=== PATIENT | female | born 1935 | race Hispanic/Latino ===

== ENCOUNTER 2023-05-20 19:48 | Emergency (ER) | payer OTHER, MEDICARE ==
[~2023-05-20] VITALS: Ht 147.3 cm; Wt 67.1 kg
[~2023-05-20 19:48] MED LIST: APIX5TAB PO; LISI1TAB51 PO; PANT40TA54 PO; PANT40TA55 PO; SOTA80TA PO
[2023-05-20] MEDS ORDERED: FAMOTIDINE 20MG VIAL IV ONE (21:30)
[2023-05-20] MEDS ORDERED: KETOROLAC 15MG/ML VIAL (15MG/ML) IV ONE (21:30)
[2023-05-20] MEDS ORDERED: ONDANSETRON 4MG INJ IVP ONE (21:30)
[2023-05-20 22:04] LABS: APPEARANCE,URINE CLEAR (CLEAR); BILIRUBIN,URINE 1 mg/dL (NEGATIVE); COLOR,URINE DARK-BROWN (YELLOW); GLUCOSE, URINE (UA) NEGATIVE (NEGATIVE); KETONES,URINE NEGATIVE (NEGATIVE); LEUKOCYTE ESTERASE ,URINE NEGATIVE Leu/uL (NEGATIVE); NITRATE,URINE 1+ (NEGATIVE); OCCULT BLOOD,URINE NEGATIVE (NEGATIVE); PH,URINE 5.5 (5.0-8.0); PROTEIN,URINE 10 mg/dL (NEGATIVE); UROBILINOGEN,URINE 3 mg/dL (0.2-1.0)
[2023-05-20 22:05] LABS: ADD UA MICROSCOPIC YES
[2023-05-20 22:10] LABS: MUCUS,URINE RARE LPF (None Seen); OTHER CASTS, URINE 3 /LPF (None Seen); SQUAMOUS EPITHELIAL CELL,UR RARE /HPF (0-2)
[2023-05-20 22:18] LABS: BASOPHILS # (AUTO) 0.04 K/uL (0.00-0.20); BASOPHILS % (AUTO) 0.6 % (0.0-5.0); EOSINOPHILS # (AUTO) 0.17 K/uL (0.00-0.70); EOSINOPHILS % (AUTO) 2.4 % (0.0-8.0); HEMATOCRIT 34.8 % (36-48); IMMATURE GRANULOCYTE ABSOLUTE 0.02 K/uL (0-1); LYMPHOCYTES # (AUTO) 1.8 K/uL (1.0-4.8); MEAN CORPUSCULAR HEMOGLOBIN 29.9 pg (27.0-33.0); MEAN CORPUSCULAR HGB CONC 33.3 g/dL (32.0-36.0); MEAN CORPUSCULAR VOLUME 89.7 fL (79-99); MONOCYTES # (AUTO) 1.1 K/uL (0.1-1.0); MONOCYTES % (AUTO) 15.6 % (3.0-13.0); NEUTROPHILS % (AUTO) 56.1 % (40.0-77.0); PLATELET COUNT (AUTO) 335 K/uL (130-400); RED BLOOD CELL COUNT(AUTO) 3.88 MIL/uL (4.00-5.50); RED CELL DISTRIBUTION WIDTH 14.5 % (11.0-15.5); WHITE BLOOD COUNT (AUTO) 7.2 K/uL (4.8-10.8)
[2023-05-20 22:39] LABS: BILIRUBIN,TOTAL 0.4 mg/dL (0.2-1.0); POTASSIUM 4.2 mmol/L (3.5-5.1); TOTAL PROTEIN, SERUM 6.8 g/dL (6.0-8.3)
[2023-05-20 22:53] LABS: ALBUMIN 3.6 g/dL (3.5-5.0); CREATININE 1.8 mg/dL (0.5-1.5)
[2023-05-20] MEDS ORDERED: CEFTRIAXONE 2GM VIAL IVPB ONE (23:00)
[2023-05-20 23:06] LABS: WBC MORPHOLOGY CONSISTENT W/DIFF
[2023-05-20 23:31] LABS: SARS-CoV-2, RNA, NAAT NEGATIVE SARS CoV-2 (NEGATIVE)
[2023-05-20 23:35] LABS: INFLUENZA TYPE A Negative For Type A (NEGATIVE); INFLUENZA TYPE B Negative For Type B (NEGATIVE)
[2023-05-21] MEDS ORDERED: CEPH500C2 PO (00:46)
[2023-05-21] MEDS ORDERED: PHEN-847 PO (00:46)
[2023-05-21 01:43] VITALS: BP 152/74; PULSE 88; RESP 20; O2SAT 99
== END 2023-05-21 01:47 | disposition home or self-care (01) ==
LOC: EDH 19:48
DX: N39.0 Urinary tract infection, site not specified (principal); I10 Essential (primary) hypertension; I48.91 Unspecified atrial fibrillation; N85.2 Hypertrophy of uterus; Z20.822 Contact with and (suspected) exposure to COVID-19; Z79.899 Other long term (current) drug therapy; Z98.890 Other specified postprocedural states
CPT/HCPCS: 99285; 74176; 96365; 96375; 87635; 84484; 80053; 83690; 85025; 87040 ×2; 87088; 87804 ×2; 83605; 81001; 36415; C9803; J3490; J0696; J2405; J1885

== ENCOUNTER 2023-11-09 10:36 | Emergency (ER) | payer OTHER, MEDICARE ==
[~2023-11-09] VITALS: Ht 144.8 cm; Wt 62.1 kg
[~2023-11-09 10:36] MED LIST changes: +CEPH500C2 PO; +PHEN-847 PO
[2023-11-09 11:02] LABS: APPEARANCE,URINE CLEAR (CLEAR); BILIRUBIN,URINE NEGATIVE (NEGATIVE); COLOR,URINE YELLOW (YELLOW); GLUCOSE, URINE (UA) NEGATIVE (NEGATIVE); KETONES,URINE NEGATIVE (NEGATIVE); LEUKOCYTE ESTERASE ,URINE NEGATIVE Leu/uL (NEGATIVE); NITRATE,URINE NEGATIVE (NEGATIVE); OCCULT BLOOD,URINE SMALL (NEGATIVE); PROTEIN,URINE 30 mg/dL (NEGATIVE)
[2023-11-09 11:17] LABS: ADD UA MICROSCOPIC YES
[2023-11-09] MEDS: 0.9%NACL 1000ML 1,000 ML IV ONE (11:18)
[2023-11-09 11:32] LABS: BACTERIA,URINE RARE /HPF (None Seen); MUCUS,URINE RARE LPF (None Seen); SQUAMOUS EPITHELIAL CELL,UR RARE /HPF (0-2); WBC,URINE 0-1 /HPF (0-1)
[2023-11-09 11:42] LABS: BASOPHILS # (AUTO) 0.03 K/uL (0.00-0.20); BASOPHILS % (AUTO) 0.5 % (0.0-5.0); EOSINOPHILS # (AUTO) 0.09 K/uL (0.00-0.70); EOSINOPHILS % (AUTO) 1.4 % (0.0-8.0); HEMATOCRIT 34.9 % (36-48); IMMATURE GRANULOCYTE ABSOLUTE 0.03 K/uL (0-1); LYMPHOCYTES % (AUTO) 15.6 % (21.0-51.0); MEAN CORPUSCULAR HEMOGLOBIN 30.1 pg (27.0-33.0); MEAN CORPUSCULAR HGB CONC 32.7 g/dL (32.0-36.0); MEAN CORPUSCULAR VOLUME 92.1 fL (79-99); MONOCYTES # (AUTO) 0.6 K/uL (0.1-1.0); MONOCYTES % (AUTO) 9.6 % (3.0-13.0); NEUTROPHILS # (AUTO) 4.8 K/uL (1.8-7.7); NEUTROPHILS % (AUTO) 72.4 % (40.0-77.0); PLATELET COUNT (AUTO) 336 K/uL (130-400); RED BLOOD CELL COUNT(AUTO) 3.79 MIL/uL (4.00-5.50); RED CELL DISTRIBUTION WIDTH 15.1 % (11.0-15.5); WHITE BLOOD COUNT (AUTO) 6.7 K/uL (4.8-10.8)
[2023-11-09 11:58] LABS: ALBUMIN 3.1 g/dL (3.5-5.0); BILIRUBIN,TOTAL 0.4 mg/dL (0.2-1.0); TOTAL PROTEIN, SERUM 6.6 g/dL (6.0-8.3)
[2023-11-09] MEDS: LEVOFLOXACIN 500 MG TABLET PO SCH (13:06)
[2023-11-09] MEDS ORDERED: ALBUHFA IH (13:16)
[2023-11-09] MEDS ORDERED: LEVO-70 PO (13:16)
[2023-11-09 13:31] VITALS: BP 135/54; PULSE 80; RESP 18; O2SAT 99
== END 2023-11-09 13:58 | disposition home or self-care (01) ==
LOC: EDH 10:36
DX: J18.0 Bronchopneumonia, unspecified organism (principal); R73.9 Hyperglycemia, unspecified; I10 Essential (primary) hypertension; I48.91 Unspecified atrial fibrillation; Z79.899 Other long term (current) drug therapy; Z98.890 Other specified postprocedural states
CPT/HCPCS: 99285; 96360; 71045; 96361; 82550; 84484; 80053; 85025; 81001; 36415; 93005; J7030

== ENCOUNTER → 2024-02-27 | Outpatient (CLI) | payer OTHER, MEDICARE ==
[~2024-02-27] MED LIST changes: +ALBUHFA IH; -CEPH500C2 PO; +LEVO-70 PO; -PHEN-847 PO
[2024-02-27 16:28] LABS: BASOPHILS # (AUTO) 0.02 K/uL (0.00-0.20); BASOPHILS % (AUTO) 0.3 % (0.0-5.0); EOSINOPHILS % (AUTO) 1.6 % (0.0-8.0); IMMATURE GRANULOCYTE ABSOLUTE 0.02 K/uL (0-1); LYMPHOCYTES # (AUTO) 1.8 K/uL (1.0-4.8); LYMPHOCYTES % (AUTO) 28.7 % (21.0-51.0); MEAN CORPUSCULAR HEMOGLOBIN 30.3 pg (27.0-33.0); MEAN CORPUSCULAR HGB CONC 33.9 g/dL (32.0-36.0); MEAN CORPUSCULAR VOLUME 89.3 fL (79-99); MONOCYTES # (AUTO) 0.6 K/uL (0.1-1.0); MONOCYTES % (AUTO) 9.9 % (3.0-13.0); NEUTROPHILS # (AUTO) 3.7 K/uL (1.8-7.7); NEUTROPHILS % (AUTO) 59.2 % (40.0-77.0); PLATELET COUNT (AUTO) 332 K/uL (130-400); RED BLOOD CELL COUNT(AUTO) 4.03 MIL/uL (4.00-5.50); RED CELL DISTRIBUTION WIDTH 14.6 % (11.0-15.5); WHITE BLOOD COUNT (AUTO) 6.2 K/uL (4.8-10.8)
[2024-02-27 16:49] LABS: MAGNESIUM 2.1 mg/dL (1.80-2.40); POTASSIUM 4.7 mmol/L (3.5-5.1)
== END | disposition home or self-care (01) ==
LOC: LAB 14:00
PROVIDERS: ATTEND Internal Medicine Cardiovascular Disease
DX: I48.0 Paroxysmal atrial fibrillation (principal); I10 Essential (primary) hypertension; Z79.01 Long term (current) use of anticoagulants
CPT/HCPCS: 36415; 80048; 83735; 85025

== ENCOUNTER 2024-05-20 18:12 | Observation (INO) | payer OTHER, MEDICARE ==
[~2024-05-20] VITALS: Ht 152.4 cm; Wt 60.8 kg
[2024-05-20 18:38] LABS: BASOPHILS # (AUTO) 0.03 K/uL (0.00-0.20); BASOPHILS % (AUTO) 0.2 % (0.0-5.0); EOSINOPHILS # (AUTO) 0.08 K/uL (0.00-0.70); EOSINOPHILS % (AUTO) 0.4 % (0.0-8.0); HEMATOCRIT 33.8 % (36-48); IMMATURE GRANULOCYTE ABSOLUTE 0.08 K/uL (0-1); LYMPHOCYTES # (AUTO) 2.8 K/uL (1.0-4.8); LYMPHOCYTES % (AUTO) 15.6 % (21.0-51.0); MEAN CORPUSCULAR HEMOGLOBIN 29.7 pg (27.0-33.0); MEAN CORPUSCULAR HGB CONC 33.4 g/dL (32.0-36.0); MEAN CORPUSCULAR VOLUME 88.7 fL (79-99); MONOCYTES # (AUTO) 1.6 K/uL (0.1-1.0); MONOCYTES % (AUTO) 8.6 % (3.0-13.0); NEUTROPHILS # (AUTO) 13.6 K/uL (1.8-7.7); NEUTROPHILS % (AUTO) 74.8 % (40.0-77.0); PLATELET COUNT (AUTO) 353 K/uL (130-400); RED BLOOD CELL COUNT(AUTO) 3.81 MIL/uL (4.00-5.50); RED CELL DISTRIBUTION WIDTH 14.3 % (11.0-15.5); WHITE BLOOD COUNT (AUTO) 18.1 K/uL (4.8-10.8)
[2024-05-20 18:47] LABS: CREATININE 1.1 mg/dL (0.5-1.0); POTASSIUM 3.7 mmol/L (3.5-5.1)
[2024-05-20 18:58] LABS: INR 1.07 (0.85-1.15); PROTHROMBIN TIME 11.5 SEC (9.6-11.6)
[2024-05-20 19:00] LABS: PARTIAL THROMBOPLASTIN TIME 32.3 SEC (26.3-35.5)
[2024-05-20 19:23] LABS: BILIRUBIN,DIRECT 0.2 mg/dL (0.0-0.3); BILIRUBIN,TOTAL 0.7 mg/dL (0.2-1.0)
[2024-05-20] MEDS: cefTRIAXone 1G VIAL IVPB ONE (21:22)
[2024-05-20] MEDS: AZITHROMYCIN 500MG+NS 250ML 250 ML IV ONE (21:46)
[2024-05-20] MEDS: 0.9%NACL 1000ML 1,000 ML IV SCH (21:47)
[2024-05-20 22:28] LABS: COVID19 (SARS ANTIGEN RAPID) PRESUMPTIVE NEGATIVE (NEGATIVE)
[2024-05-20 22:29] LABS: INFLUENZA TYPE A Negative For Type A (NEGATIVE); INFLUENZA TYPE B Negative For Type B (NEGATIVE)
[2024-05-20 22:37] LABS: APPEARANCE,URINE CLEAR (CLEAR); BILIRUBIN,URINE NEGATIVE (NEGATIVE); COLOR,URINE YELLOW (YELLOW); GLUCOSE, URINE (UA) NEGATIVE (NEGATIVE); KETONES,URINE 5 mg/dL (NEGATIVE); LEUKOCYTE ESTERASE ,URINE NEGATIVE Leu/uL (NEGATIVE); NITRATE,URINE NEGATIVE (NEGATIVE); OCCULT BLOOD,URINE SMALL (NEGATIVE); PROTEIN,URINE 70 mg/dL (NEGATIVE); UROBILINOGEN,URINE 3 mg/dL (0.2-1.0)
[2024-05-20 22:38] LABS: ADD UA MICROSCOPIC YES
[2024-05-20 22:52] LABS: BACTERIA,URINE RARE /HPF (None Seen); MUCUS,URINE RARE LPF (None Seen); SQUAMOUS EPITHELIAL CELL,UR RARE /HPF (0-2)
[2024-05-20] MEDS ORDERED: ondanSETRON 4MG INJ IVP PRN (23:30)
[2024-05-20] MEDS ORDERED: TEMAZepam 15 MG CAPSULE PO PRN (23:30)
[2024-05-20] MEDS ORDERED: acetaMINOPHEN 650 MG SUPPOSITORY RC PRN (23:30)
[2024-05-20] MEDS ORDERED: hydrALAZine 20MG/ML VIAL IV PRN (23:30)
[2024-05-20] MEDS ORDERED: LACTULOSE 20 GM/30 ML UDCUP PO PRN (23:30)
[2024-05-20] MEDS ORDERED: doCUSate SODIUM 100 MG CAP PO PRN (23:30)
[2024-05-21] VITALS (9 sets, daily range): BP systolic 121; BP diastolic 53; PULSE 63–83; RESP 15–20; TEMP 98.9; O2SAT 95–100
[2024-05-21] MEDS: IpraTROPium 0.5 MG/2.5 ML INH IH SCH (01:13)
[2024-05-21] MEDS: BUDESONIDE 0.5 MG/2 ML INH IH SCH (01:13)
[2024-05-21] MEDS: furoSEMIDE 40MG VIAL IV SCH (01:34)
[2024-05-21] MEDS: acetaMINOPHEN 325 MG TAB PO PRN (02:50)
[2024-05-21] MEDS: INSULIN humuLIN R 100 UNIT/ML 3ML SQ SCH (07:30)
[2024-05-21 07:54] LABS: BASOPHILS # (AUTO) 0.03 K/uL (0.00-0.20); BASOPHILS % (AUTO) 0.2 % (0.0-5.0); EOSINOPHILS # (AUTO) 0.04 K/uL (0.00-0.70); EOSINOPHILS % (AUTO) 0.3 % (0.0-8.0); HEMATOCRIT 30.4 % (36-48); IMMATURE GRANULOCYTE ABSOLUTE 0.06 K/uL (0-1); LYMPHOCYTES # (AUTO) 2.6 K/uL (1.0-4.8); LYMPHOCYTES % (AUTO) 17.9 % (21.0-51.0); MEAN CORPUSCULAR HEMOGLOBIN 30.4 pg (27.0-33.0); MEAN CORPUSCULAR HGB CONC 33.9 g/dL (32.0-36.0); MEAN CORPUSCULAR VOLUME 89.7 fL (79-99); MONOCYTES # (AUTO) 1.3 K/uL (0.1-1.0); MONOCYTES % (AUTO) 9.3 % (3.0-13.0); NEUTROPHILS # (AUTO) 10.3 K/uL (1.8-7.7); NEUTROPHILS % (AUTO) 71.9 % (40.0-77.0); PLATELET COUNT (AUTO) 317 K/uL (130-400); RED BLOOD CELL COUNT(AUTO) 3.39 MIL/uL (4.00-5.50); RED CELL DISTRIBUTION WIDTH 14.2 % (11.0-15.5); WHITE BLOOD COUNT (AUTO) 14.3 K/uL (4.8-10.8)
[2024-05-21 08:10] LABS: MAGNESIUM 1.9 mg/dL (1.80-2.40); PHOSPHORUS 3.2 mg/dL (2.5-4.9); POTASSIUM 3.2 mmol/L (3.5-5.1); THYROID STIMULATING HORMONE 0.8 uIU/mL (0.36-3.74)
[2024-05-21] MEDS: DOXYCYCLINE 100MG+NS 250ML 250 ML IV SCH (08:57)
[2024-05-21] MEDS: cefTRIAXone 1G VIAL IVPB SCH (18:26)
[2024-05-21] MEDS ORDERED: NON-FORMULARY MEDICATION 1 EACH (Albuterol Sulfate (Ventolin Hfa/Proventil Hfa/Proair Hfa) IH SCH (20:00)
[2024-05-21] MEDS: PHARMACY COMMUNICATION MISC SCH (20:00)
[2024-05-21] MEDS: APIXaban 5 MG TABLET PO SCH (20:55)
[2024-05-21] MEDS: LISINOPRIL 20 MG TABLET PO SCH (20:55)
[2024-05-21] MEDS: hydroCHLOROthiazide 25 MG TABLET PO SCH (20:55)
[2024-05-21] MEDS ORDERED: NON-FORMULARY MEDICATION 1 EACH (Lisinopril/Hydrochlorothiazide (Lisinopril-Hctz 20-12.5 m PO SCH (21:00)
[2024-05-21] MEDS ORDERED: soTALol HCL 80 MG TABLET PO SCH ×2 (21:00)
[2024-05-22] VITALS (9 sets, daily range): BP systolic 107–135; BP diastolic 55–69; PULSE 68–78; RESP 16–18; TEMP 98.3–98.6; O2SAT 97–99
[2024-05-22] MEDS ORDERED: LOSA100T59 PO (02:48)
[2024-05-22] MEDS ORDERED: APIX2.5T PO (02:48)
[2024-05-22] MEDS ORDERED: AMLO-257 PO (02:48)
[2024-05-22] MEDS ORDERED: AMIO200T68 PO (02:48)
[2024-05-22 05:13] LABS: BASOPHILS # (AUTO) 0.02 K/uL (0.00-0.20); BASOPHILS % (AUTO) 0.2 % (0.0-5.0); EOSINOPHILS # (AUTO) 0.07 K/uL (0.00-0.70); EOSINOPHILS % (AUTO) 0.7 % (0.0-8.0); HEMATOCRIT 29.7 % (36-48); IMMATURE GRANULOCYTE ABSOLUTE 0.04 K/uL (0-1); LYMPHOCYTES # (AUTO) 1.9 K/uL (1.0-4.8); LYMPHOCYTES % (AUTO) 19.7 % (21.0-51.0); MEAN CORPUSCULAR HEMOGLOBIN 29.9 pg (27.0-33.0); MEAN CORPUSCULAR HGB CONC 33.3 g/dL (32.0-36.0); MEAN CORPUSCULAR VOLUME 89.7 fL (79-99); MONOCYTES # (AUTO) 1.1 K/uL (0.1-1.0); MONOCYTES % (AUTO) 11.9 % (3.0-13.0); NEUTROPHILS # (AUTO) 6.4 K/uL (1.8-7.7); NEUTROPHILS % (AUTO) 67.1 % (40.0-77.0); PLATELET COUNT (AUTO) 333 K/uL (130-400); RED BLOOD CELL COUNT(AUTO) 3.31 MIL/uL (4.00-5.50); RED CELL DISTRIBUTION WIDTH 14.1 % (11.0-15.5); WHITE BLOOD COUNT (AUTO) 9.6 K/uL (4.8-10.8)
[2024-05-22 05:29] LABS: CREATININE 0.8 mg/dL (0.5-1.0)
[2024-05-22 05:36] LABS: POTASSIUM 2.8 mmol/L (3.5-5.1)
[2024-05-22] MEDS ORDERED: PoTASSium chl 10% ELIXIR 20MEQ 20 MEQ/15 ML UDCUP PO PRN (06:00)
[2024-05-22] MEDS: PoTASSium chloRIDE 20MEQ/100ML 100 ML IV PRN (06:32)
[2024-05-22] MEDS ORDERED: DOXY-252 PO (08:24)
[2024-05-22] MEDS: APIXaban 2.5 MG TABLET PO SCH (08:50)
[2024-05-22] MEDS: PANTOPrazole 40 MG TAB DR PO SCH (08:50)
[2024-05-22] MEDS: AMIOdarone 200 MG TABLET PO SCH (08:50)
[2024-05-22] MEDS: PoTASSium chloRIDE 20MEQ ER 20 MEQ ERTAB PO PRN (08:51)
[2024-05-22] MEDS: MAGNESIUM 2GM PREMIX 50ML 50 ML IV PRN (08:51)
[2024-05-22] MEDS ORDERED: soTALol HCL 80 MG TABLET PO SCH (09:00)
[2024-05-22] MEDS ORDERED: PANTOPrazole 40 MG TAB DR PO SCH (09:00)
[2024-05-22] MEDS: amLODIPine 5 MG TAB PO SCH (11:51)
[2024-05-22] MEDS: LoSARTan 100 MG TABLET PO SCH (12:29)
[2024-05-22 15:21] LABS: MAGNESIUM 2.4 mg/dL (1.80-2.40); POTASSIUM 3.4 mmol/L (3.5-5.1)
== END 2024-05-22 17:45 | disposition home or self-care (01) ==
LOC: EDH 18:12 → EDHIP 22:41 → 3DH 05-21 19:33
PROVIDERS: ADMIT Internal Medicine Critical Care Medicine; ATTEND Internal Medicine Critical Care Medicine
DX: A41.9 Sepsis, unspecified organism (principal); J18.9 Pneumonia, unspecified organism; N39.0 Urinary tract infection, site not specified; I50.9 Heart failure, unspecified; I25.10 Atherosclerotic heart disease of native coronary artery without angina pectoris; I48.91 Unspecified atrial fibrillation; E87.1 Hypo-osmolality and hyponatremia; M54.9 Dorsalgia, unspecified; K21.9 Gastro-esophageal reflux disease without esophagitis; D64.9 Anemia, unspecified; E11.65 Type 2 diabetes mellitus with hyperglycemia; E87.8 Other disorders of electrolyte and fluid balance, not elsewhere classified; Z20.822 Contact with and (suspected) exposure to COVID-19; E11.22 Type 2 diabetes mellitus with diabetic chronic kidney disease; D63.1 Anemia in chronic kidney disease; N18.9 Chronic kidney disease, unspecified; G89.29 Other chronic pain; E86.0 Dehydration; Z79.01 Long term (current) use of anticoagulants; Z79.899 Other long term (current) drug therapy; Z98.890 Other specified postprocedural states
CPT/HCPCS: 96365; 96368; 99285; 82550; 80076; 84484; 80048 ×3; 83880; 85025 ×3; 85610; 85730; 87040; 87086; 87804 ×2; 83605; 87426; 81001; 36415 ×3; 71045; 93005; 84145; 96376 ×2; 96366; 96375 ×2; 96367; 84443; 83735 ×3; 84100; 82948 ×5; 94664; 96361; 84132; G0378 ×43; J7030; J0696 ×2; J0456; J3490 ×3; J1940 ×3; J3475; J3480; 94640

== ENCOUNTER 2024-06-04 17:16 | Emergency (ER) | payer OTHER, MEDICARE ==
[~2024-06-04] VITALS: Ht 144.8 cm; Wt 59.4 kg
[~2024-06-04 17:16] MED LIST changes: +AMIO200T68 PO; +AMLO-257 PO; +APIX2.5T PO; -APIX5TAB PO; +DOXY-252 PO; -LEVO-70 PO; -LISI1TAB51 PO; +LOSA100T59 PO; -PANT40TA54 PO; -SOTA80TA PO
[2024-06-04] MEDS: ketOROlac 15MG/ML VIAL (15MG/ML) IV ONE (18:21)
[2024-06-04] MEDS: 0.9%NACL 1000ML 1,000 ML IV ONE (18:21)
[2024-06-04 18:23] LABS: BASOPHILS # (AUTO) 0.03 K/uL (0.00-0.20); BASOPHILS % (AUTO) 0.4 % (0.0-5.0); EOSINOPHILS # (AUTO) 0.03 K/uL (0.00-0.70); EOSINOPHILS % (AUTO) 0.4 % (0.0-8.0); HEMATOCRIT 34.5 % (36-48); IMMATURE GRANULOCYTE ABSOLUTE 0.04 K/uL (0-1); LYMPHOCYTES # (AUTO) 1.5 K/uL (1.0-4.8); LYMPHOCYTES % (AUTO) 20.4 % (21.0-51.0); MEAN CORPUSCULAR HEMOGLOBIN 29.8 pg (27.0-33.0); MEAN CORPUSCULAR HGB CONC 33.3 g/dL (32.0-36.0); MEAN CORPUSCULAR VOLUME 89.4 fL (79-99); MONOCYTES # (AUTO) 1.1 K/uL (0.1-1.0); MONOCYTES % (AUTO) 14.2 % (3.0-13.0); NEUTROPHILS # (AUTO) 4.8 K/uL (1.8-7.7); NEUTROPHILS % (AUTO) 64.1 % (40.0-77.0); PLATELET COUNT (AUTO) 449 K/uL (130-400); RED BLOOD CELL COUNT(AUTO) 3.86 MIL/uL (4.00-5.50); RED CELL DISTRIBUTION WIDTH 14.6 % (11.0-15.5); WHITE BLOOD COUNT (AUTO) 7.5 K/uL (4.8-10.8)
[2024-06-04 18:34] LABS: CREATININE 1.2 mg/dL (0.5-1.0); POTASSIUM 4.4 mmol/L (3.5-5.1)
[2024-06-04 19:11] LABS: APPEARANCE,URINE CLEAR (CLEAR); BILIRUBIN,URINE NEGATIVE (NEGATIVE); COLOR,URINE YELLOW (YELLOW); GLUCOSE, URINE (UA) NEGATIVE (NEGATIVE); KETONES,URINE 5 mg/dL (NEGATIVE); LEUKOCYTE ESTERASE ,URINE 75 Leu/uL (NEGATIVE); NITRATE,URINE NEGATIVE (NEGATIVE); OCCULT BLOOD,URINE NEGATIVE (NEGATIVE); PROTEIN,URINE 30 mg/dL (NEGATIVE)
[2024-06-04 19:13] LABS: ADD UA MICROSCOPIC YES
[2024-06-04 19:15] LABS: BACTERIA,URINE RARE /HPF (None Seen); MUCUS,URINE RARE LPF (None Seen); SQUAMOUS EPITHELIAL CELL,UR RARE /HPF (0-2); YEAST,URINE BUDDING RARE /HPF (None Seen)
[2024-06-04] MEDS ORDERED: PHEN-776 PO (19:29)
[2024-06-04] MEDS: PHENAZOpyridine HCL 200 MG TAB 200 MG TABLET PO ONE (19:49)
[2024-06-04 20:00] VITALS: BP 129/54; PULSE 72; RESP 12; TEMP 98.3; O2SAT 98
== END 2024-06-04 19:56 | disposition home or self-care (01) ==
LOC: EDH 17:16
DX: N39.0 Urinary tract infection, site not specified (principal); I13.0 Hypertensive heart and chronic kidney disease with heart failure and stage 1 through stage 4 chronic kidney disease, or unspecified chronic kidney disease; I50.9 Heart failure, unspecified; N18.9 Chronic kidney disease, unspecified; E87.1 Hypo-osmolality and hyponatremia; D53.9 Nutritional anemia, unspecified; I48.91 Unspecified atrial fibrillation; M19.90 Unspecified osteoarthritis, unspecified site; I25.10 Atherosclerotic heart disease of native coronary artery without angina pectoris; K21.9 Gastro-esophageal reflux disease without esophagitis; Z79.2 Long term (current) use of antibiotics; Z79.899 Other long term (current) drug therapy; Z98.890 Other specified postprocedural states
CPT/HCPCS: 99285; 74176; 96374; 80048; 83690; 85025; 87086; 81001; 36415; J7030; J1885

== ENCOUNTER → 2024-07-06 | Outpatient (CLI) | payer OTHER, MEDICARE ==
[~2024-07-06] MED LIST changes: -ALBUHFA IH; -DOXY-252 PO; +NACL1 PO; +NITR100C PO; +POTA10CA95 PO; +SERT-439 PO
[2024-07-06 16:26] LABS: BASOPHILS # (AUTO) 0.04 K/uL (0.00-0.20); BASOPHILS % (AUTO) 0.6 % (0.0-5.0); EOSINOPHILS # (AUTO) 0.16 K/uL (0.00-0.70); EOSINOPHILS % (AUTO) 2.4 % (0.0-8.0); HEMATOCRIT 35.6 % (36-48); IMMATURE GRANULOCYTE ABSOLUTE 0.03 K/uL (0-1); LYMPHOCYTES # (AUTO) 1.9 K/uL (1.0-4.8); LYMPHOCYTES % (AUTO) 29.3 % (21.0-51.0); MEAN CORPUSCULAR HEMOGLOBIN 30.3 pg (27.0-33.0); MEAN CORPUSCULAR VOLUME 94.7 fL (79-99); MONOCYTES # (AUTO) 0.8 K/uL (0.1-1.0); MONOCYTES % (AUTO) 12.7 % (3.0-13.0); NEUTROPHILS # (AUTO) 3.6 K/uL (1.8-7.7); NEUTROPHILS % (AUTO) 54.5 % (40.0-77.0); PLATELET COUNT (AUTO) 470 K/uL (130-400); RED BLOOD CELL COUNT(AUTO) 3.76 MIL/uL (4.00-5.50); RED CELL DISTRIBUTION WIDTH 16.5 % (11.0-15.5); WHITE BLOOD COUNT (AUTO) 6.6 K/uL (4.8-10.8)
[2024-07-06 17:58] LABS: ALBUMIN 3.2 g/dL (3.5-5.0); BILIRUBIN,TOTAL 0.3 mg/dL (0.2-1.0); CREATININE 1.3 mg/dL (0.5-1.0); POTASSIUM 4.4 mmol/L (3.5-5.1); THYROID STIMULATING HORMONE 1.36 uIU/mL (0.36-3.74); TOTAL PROTEIN, SERUM 7.1 g/dL (6.0-8.3)
[2024-07-06 18:28] LABS: T4 (THYROXINE) 10.9 ug/dL (4.7-13.3)
== END | disposition home or self-care (01) ==
LOC: LAB 14:41
PROVIDERS: ATTEND Internal Medicine Cardiovascular Disease
DX: E87.1 Hypo-osmolality and hyponatremia (principal); Z79.01 Long term (current) use of anticoagulants
CPT/HCPCS: 36415; 80053; 84436; 84443; 85025

== ENCOUNTER → 2024-07-15 | Outpatient (CLI) | payer OTHER, MEDICARE ==
[2024-07-15 16:43] LABS: POTASSIUM 4.2 mmol/L (3.5-5.1)
== END | disposition home or self-care (01) ==
LOC: LAB 13:45
PROVIDERS: ATTEND Internal Medicine Cardiovascular Disease
DX: I25.10 Atherosclerotic heart disease of native coronary artery without angina pectoris (principal)
CPT/HCPCS: 36415; 80048

== ENCOUNTER 2025-04-10 22:40 | Emergency (ER) | payer OTHER, MEDICAID ==
[~2025-04-10] VITALS: Ht 149.9 cm; Wt 58.1 kg
[~2025-04-10 22:40] MED LIST changes: -AMIO200T68 PO; +AMIO200T73 PO
--- NOTE | 2025-04-10 23:27 | HMCIMG ---
EXAM: CR Chest, 1 view CLINICAL HISTORY: Chest pain. COMPARISON: None provided. FINDINGS: Mild COPD. The lungs show no infiltrates or other acute findings. No pleural effusion or pneumothorax. The cardiomediastinal silhouette is within normal limits. Mild atherosclerotic aorta. No acute osseous abnormality. IMPRESSION: No acute cardiopulmonary process is evident. Mild COPD. No interval changes. /[place]
[2025-04-10 23:52] LABS: IMMATURE GRANULOCYTE ABSOLUTE 0.03 K/uL (0-1); NUCLEATED RED BLOOD CELLS 0.0 % (0.0-0.19); PLATELET COUNT (AUTO) 377 K/uL (130-400); RED BLOOD CELL COUNT(AUTO) 4.13 MIL/uL (4.00-5.50); RED CELL DISTRIBUTION WIDTH 15.5 % (11.0-15.5); WHITE BLOOD COUNT (AUTO) 7.8 K/uL (4.8-10.8)
[2025-04-11 00:10] LABS: CREATININE 1.6 mg/dL (0.5-1.0); GLOMERULAR FILTR. RATE CALC 31.0 mL/min (>90); GLUCOSE,RANDOM 136.0 mg/dL (70-105); SODIUM SERUM 137.0 mmol/L (136-145); UREA NITROGEN, BLOOD 30.0 mg/dL (7-18)
[2025-04-11 00:15] LABS: ASPARTATE AMINOTRANSFERASE 21.0 U/L (10-37); CREATINE KINASE, TOTAL 89.0 U/L (21-232); TOTAL PROTEIN, SERUM 7.3 g/dL (6.0-8.3)
--- NOTE | 2025-04-11 00:59 | ERN ---
General Chief Complaint: Multiple Complaints Stated Complaint: BACK, CHEST, SOB PAIN Time Seen by MD: 22:51 Source: patient, family History of Present Illness Initial Comments Patient 89-year-old female with multiple medical problems presents with upper abdominal pain both quadrants. No fevers no chills no difficulty urinating no difficulty defecating no upper respiratory tract infection symptoms no chest pain. Allergies: Coded Allergies: ciprofloxacin (Unverified Allergy, Unknown, HALLUCINATIONS, 06/10/24) Home Meds Active Scripts Nitrofurantoin Macrocrystal (Nitrofurantoin) 100 Mg Capsule, 100 MG PO DAILY for 3 Days, #3 CAP Prov:SAMI BOB 06/12/24 Potassium Chloride (Potassium Chloride) 10 Meq Capsule.er, 10 MEQ PO DAILY, #15 CAP Prov:SAMI BOB 06/12/24 Sodium Chloride (NaCl) 1,000 Mg Tab, 1000 MG PO TID, #30 TAB Prov:SAMI BOB 06/12/24 Reported Medications Sertraline HCl (Sertraline HCl) 50 Mg Tablet, 50 MG PO DAILY, TAB 06/09/24 Losartan Potassium (Losartan Potassium) 100 Mg Tablet, 100 MG PO DAILY, TAB 05/22/24 Apixaban (Eliquis) 2.5 Mg Tablet, 2.5 MG PO BID, TAB 05/22/24 Amiodarone HCl (Amiodarone HCl) 200 Mg Tablet, 200 MG PO DAILY, TAB 05/22/24 Amlodipine Besylate (Amlodipine Besylate) 5 Mg Tablet, 5 MG PO DAILY, TAB 05/22/24 Pantoprazole Sodium (Protonix) 40 Mg Ectab, 40 MG PO DAILY, TAB.EC 03/30/16 Past Medical History Past Medical History: A-Fib, Arthritis, CAD, CHF, Diverticulosis, GERD, Hypertension, Renal Disese, Other Medical History Other: SVT Past Surgical History: None Surgical History Other: LEFT LEG SX Social History Social History: Negative, Lives with family Female( History) History: Not Applicable Physical Exam General Appearance: (+) no apparent distress Orientation: (+) alert Head/Face Trauma: No Eye: bilateral eye normal inspection, bilateral eye PERRL, bilateral eye EOMI Ear, Nose, Throat: (+) hearing grossly normal, (+) normal ENT inspection, (+) moist mucous membraine Neck: (+) normal inspection, (+) supple, (+) full range of motion Respiratory: (+) chest non-tender, (+) lungs clear, (+) well ventilated Heart: (+) regular, (+) no gallop Vascular: (+) no edema, (+) normal peripheral pulse Gastrointestinal: (+) soft, (+) non-tender, (+) bowel sound present Back: (+) normal inspection, (+) no CVA tenderness Extremities: (+) normal range of motion, (+) non-tender Results Laboratory and Microbiology Lab and Micro Result Laboratory Tests Test 04/10/25 23:42 04/11/25 02:01 White Blood Count 7.8 K/uL (4.8-10.8) Red Blood Count 4.13 MIL/uL (4.00-5.50) Hemoglobin 12.3 g/dL (12.0-16.0) Hematocrit 37.6 % (36-48) Mean Corpuscular Volume 91.0 fL (79-99) Mean Corpuscular Hemoglobin 29.8 pg (27.0-33.0) Mean Corpuscular Hemoglobin Concent 32.7 g/dL (32.0-36.0) Red Cell Distribution Width 15.5 % (11.0-15.5) Platelet Count 377 K/uL (130-400) Mean Platelet Volume 9.3 fL (7.5-10.5) Immature Granulocyte % (Auto) 0.4 % (0-1) Neutrophils (%) (Auto) 71.4 % (40.0-77.0) Lymphocytes (%) (Auto) 15.7 % (21.0-51.0) L Monocytes (%) (Auto) 10.9 % (3.0-13.0) Eosinophils (%) (Auto) 1.2 % (0.0-8.0) Basophils (%) (Auto) 0.4 % (0.0-5.0) Neutrophils # (Auto) 5.6 K/uL (1.8-7.7) Lymphocytes # (Auto) 1.2 K/uL (1.0-4.8) Monocytes # (Auto) 0.9 K/uL (0.1-1.0) Eosinophils # (Auto) 0.09 K/uL (0.00-0.70) Basophils # (Auto) 0.03 K/uL (0.00-0.20) Absolute Immature Granulocyte (auto 0.03 K/uL (0-1) Nucleated Red Blood Cells 0.0 % (0.0-0.19) Sodium Level 137 mmol/L (136-145) Potassium Level 5.0 mmol/L (3.5-5.1) Chloride Level 104 mmol/L (101-111) Carbon Dioxide Level 27 mmol/L (21-32) Blood Urea Nitrogen 30 mg/dL (7-18) H Creatinine 1.6 mg/dL (0.5-1.0) H Glomerular Filtration Rate Calc 31 mL/min (>90) Random Glucose 136 mg/dL (70-105) H Lactic Acid Level 1.0 mmol/L (0.8-2.5) Total Calcium 9.0 mg/dL (8.5-10.1) Total Bilirubin 0.5 mg/dL (0.2-1.0) Direct Bilirubin 0.1 mg/dL (0.0-0.3) Aspartate Amino Transf (AST/SGOT) 21 U/L (10-37) Alanine Aminotransferase (ALT/SGPT) 21 U/L (12-78) Alkaline Phosphatase 95 U/L (50-136) Total Creatine Kinase 89 U/L (21-232) # Troponin I High Sensitivity 9 ng/L (4-50) Total Protein 7.3 g/dL (6.0-8.3) Albumin 3.5 g/dL (3.5-5.0) Urine Color YELLOW (YELLOW) Urine Appearance CLEAR (CLEAR) Urine pH 5.5 (5.0-8.0) Urine Specific [place] 1.026 (1.001-1.031) Urine Protein 10 mg/dL (NEGATIVE) H Urine Glucose (UA) NEGATIVE mg/dL (NEGATIVE) Urine Ketones NEGATIVE mg/dL (NEGATIVE) Urine Occult Blood NEGATIVE (NEGATIVE) Urine Nitrate NEGATIVE (NEGATIVE) Urine Bilirubin NEGATIVE mg/dL (NEGATIVE) Urine Urobilinogen 0.2 mg/dL (0.2-1.0) Urine Leukocyte Esterase 25 Emil/uL (NEGATIVE) H Urine RBC 2-5 /HPF (0-1) H Urine WBC 2-5 /HPF (0-1) H Urine Squamous Epithelial Cells RARE /HPF (0-2) Urine Bacteria FEW /HPF (None Seen) Urine Hyaline Casts 2-5 /LPF (0-1 /LPF) H MDM MDM: Differential diagnosis: Gastroenteritis, dehydration, muscle spasm, UTI, kidney stones, Rationale: Tests considered and ordered secondary to shared decision making include: Previous outside records reviewed: Old ER visits. Risk of complication and/or morbidity or mortality of patient management: None Medications-Per medication reconciliation Need for hospitalization: Patient does meet criteria for hospitalization. Need for emergency major/minor surgery: No There are no social concerns with this patient. Prescription drug management Prescriptions will include symptomatic care Patient's prior external medical records from other ER visits were reviewed by me as indicated. Prior testing and results from previous visits were reviewed. Prior tests were taken into account with medical decision making and resource utilization, independent historian/historians were used to obtain complete medical history. I independently interpreted the test that were performed, results were reviewed by me and considered findings on radiology if ordered. With time and fluid the patient's bilateral upper abdominal quadrant pain is gone. Patient still has some lateral back pain. This pain has superficial and most likely represents muscle pain. I have given her some Tylenol and some muscle relaxants. Laboratory analysis shows the presence of bacterial infection in her urine. I have given her a g of Ancef. I will discharge her home with a short course of Ancef. ED Course Orders Procedure Category Date Status Time Vital Signs Per CPOE 04/10/25 Transmitted Routine 22:43 Chest 1vw RAD 04/10/25 Resulted 22:43 12 Lead Ekg Tracing- EKG 04/10/25 Logged Technical 22:43 Oxygen By Nc/Pulse Ox CPOE 04/10/25 Transmitted 22:43 Maintain Iv CPOE 04/10/25 Transmitted 22:43 Iv Insertion CPOE 04/10/25 Transmitted 22:43 Cardiac Monitoring CPOE 04/10/25 Transmitted 22:43 Pulse Oximetry With CPOE 04/10/25 Transmitted Vs And Prn 22:43 Cbc With Differential LAB 04/10/25 Complete 22:43 Activity: Br W/Brp CPOE 04/10/25 Transmitted With Assist 22:43 Creatine Kinase, Total LAB 04/10/25 Complete 22:43 Troponin I High LAB 04/10/25 Complete Sensitivity 22:43 Urinalysis Profile LAB 04/10/25 Complete 22:43 Basic Metabolic Panel LAB 04/10/25 Complete 22:43 Lactated Ringers PHA 04/10/25 Complete 1000ml (Lactated 23:18 Lactic Acid LAB 04/10/25 Complete 23:21 Hepatic Function Panel LAB 04/10/25 Complete 22:43 Cefazolin Sodium 1 Gm PHA 04/11/25 Complete Vial (Ancef 1 Gm V 02:28 Cyclobenzaprine Hcl PHA 04/11/25 In Process (Cyclobenzaprine Hcl 03:00 Acetaminophen 500mg PHA 04/11/25 In Process Tab (Tylenol 500mg T 03:00 Current Medications Medications (Trade) Dose Ordered Sig/[place] Route PRN Reason Start Time Stop Time Status Last Admin Dose Admin Acetaminophen (TYLenol 500MG TAB) 1,000 mg ONCE ONCE PO 04/11/25 03:00 04/11/25 03:01 Cefazolin Sodium (ANCEF 1 gm vial) 1 gm ONCE STAT IVP 04/11/25 02:28 04/11/25 02:31 DC Cyclobenzaprine HCl (Cyclobenzaprine HCl) 10 mg ONCE ONCE PO 04/11/25 03:00 04/11/25 03:01 Lactated Ringer's (Lactated Ringers 1000ml) 1,000 ml BOLUS STAT IV 04/10/25 23:18 04/10/25 23:20 DC 04/11/25 01:59 Vital Signs Date Time Temp Pulse Resp B/P (MAP) Pulse Ox O2 Delivery O2 Flow Rate FiO2 04/11/25 02:08 98.1 55 18 144/59 98 Room Air* 0 21 04/10/25 22:43 98.1 77 20 143/55 99 Room Air DX & DISP Disposition: Discharge Departure Impression: Primary Impression: UTI (urinary tract infection) Additional Impression: Chronic renal insufficiency Condition: Stable Scripts Cephalexin Monohydrate (Keflex) 500 Mg Cap 500 MG PO QID for 7 Days, #28 CAP Prov: BRAIN PAL MD 04/11/25 Additional Instructions: You have a urinary tract infection. I have sent a prescription to your pharmacy for antibiotics. Please drink plenty of fluids. Drink enough fluids so that your urine runs clear at least once a day. Please follow-up with your primary care physician if your symptoms do not improve quickly. Please come back to the emergency room if your pain becomes intractable. For your back pain I recommend muscle relaxants and Tylenol as well as warm compresses. Referrals: KROES,SUNNY A MD (PCP) BRAIN PAL MD Apr 11, 2025 00:59
--- NOTE | 2025-04-11 01:50 | NUR ---
REPORT TO RACHEL AYALA
--- NOTE | 2025-04-11 01:53 | NUR ---
PT TAKEN TO RESTROOM, UA CUP PROVIDED
[2025-04-11] MEDS: LACTATED RINGERS 1000ML IV STA (01:59)
[2025-04-11 02:18] LABS: ADD UA MICROSCOPIC YES; APPEARANCE,URINE CLEAR (CLEAR); GLUCOSE, URINE (UA) NEGATIVE (NEGATIVE); LEUKOCYTE ESTERASE ,URINE 25 Leu/uL (NEGATIVE); NITRATE,URINE NEGATIVE (NEGATIVE); OCCULT BLOOD,URINE NEGATIVE (NEGATIVE)
[2025-04-11 02:24] LABS: SQUAMOUS EPITHELIAL CELL,UR RARE /HPF (0-2)
[2025-04-11] MEDS ORDERED: CEPH500B PO (02:41)
[2025-04-11] MEDS: CYCLOBENZAPRINE HCL 10 MG TABLET PO ONE (02:43)
[2025-04-11 02:52] VITALS: BP 146/65; PULSE 70; RESP 17; TEMP 98.2; O2SAT 99
--- NOTE | 2025-04-11 12:55 | EKG ---
[facility] Test Date: 2025-04-10 Test Time: 22:41:27 Pat Name: MARY CARDONA Department: ED Room: Gender: F [employer] Tender: 0802 : 1935 Requested By: BRAIN PAL Order Number: [id number] Reading MD: Maximino Frank Measurements Intervals [place] Rate: 75 P: 0 CO: 220 QRS: -43 QRSD: 117 T: 80 QT: 411 QTc: 461 Interpretive Statements Sinus rhythm Prolonged CO interval Incomplete left bundle branch block Left ventricular hypertrophy Anterior Q waves, possibly due to LVH Compared to ECG 06/09/2024 13:50:23 First degree AV block now present Left bundle-branch block now present Q waves now present Ectopic atrial rhythm no longer present Electronically Signed On 04-12-2025 19:14:34 CDT by Maximino Frank Please click the below link to view image of tracing.
== END 2025-04-11 02:57 | disposition home or self-care (01) ==
LOC: EDH 22:40
DX: N39.0 Urinary tract infection, site not specified (principal); I13.0 Hypertensive heart and chronic kidney disease with heart failure and stage 1 through stage 4 chronic kidney disease, or unspecified chronic kidney disease; I50.9 Heart failure, unspecified; N18.9 Chronic kidney disease, unspecified; I25.10 Atherosclerotic heart disease of native coronary artery without angina pectoris; I48.91 Unspecified atrial fibrillation; J44.9 Chronic obstructive pulmonary disease, unspecified; M19.90 Unspecified osteoarthritis, unspecified site; K21.9 Gastro-esophageal reflux disease without esophagitis; Z88.1 Allergy status to other antibiotic agents; Z79.01 Long term (current) use of anticoagulants; Z79.899 Other long term (current) drug therapy
CPT/HCPCS: 99285; 71045; 80076; 82550; 84484; 80048; 85025; 83605; 81001; 36415; 93005; 96374; J7120; J0690

== ENCOUNTER 2025-04-29 23:22 | Emergency (ER) | payer OTHER, MEDICARE ==
[~2025-04-29] VITALS: Ht 144.8 cm; Wt 60.8 kg
[~2025-04-29 23:22] MED LIST changes: +CEPH500B PO
--- NOTE | 2025-04-29 23:25 | NUR ---
UA CUP PROVIDED
[2025-04-30 00:32] LABS: APPEARANCE,URINE CLEAR (CLEAR); GLUCOSE, URINE (UA) NEGATIVE (NEGATIVE); LEUKOCYTE ESTERASE ,URINE NEGATIVE Leu/uL (NEGATIVE); NITRATE,URINE NEGATIVE (NEGATIVE); OCCULT BLOOD,URINE SMALL (NEGATIVE)
[2025-04-30 00:34] LABS: ADD UA MICROSCOPIC YES
[2025-04-30 00:35] LABS: SQUAMOUS EPITHELIAL CELL,UR RARE /HPF (0-2)
[2025-04-30 00:36] LABS: IMMATURE GRANULOCYTE ABSOLUTE 0.02 K/uL (0-1); NUCLEATED RED BLOOD CELLS 0.0 % (0.0-0.19); PLATELET COUNT (AUTO) 452 K/uL (130-400); RED BLOOD CELL COUNT(AUTO) 3.87 MIL/uL (4.00-5.50); RED CELL DISTRIBUTION WIDTH 15.9 % (11.0-15.5); WHITE BLOOD COUNT (AUTO) 7.0 K/uL (4.8-10.8)
[2025-04-30 00:40] LABS: CREATININE 1.3 mg/dL (0.5-1.0); GLOMERULAR FILTR. RATE CALC 39.0 mL/min (>90); GLUCOSE,RANDOM 113.0 mg/dL (70-105); SODIUM SERUM 137.0 mmol/L (136-145); UREA NITROGEN, BLOOD 31.0 mg/dL (7-18)
[2025-04-30 00:44] LABS: ASPARTATE AMINOTRANSFERASE 20.0 U/L (10-37); TOTAL PROTEIN, SERUM 7.0 g/dL (6.0-8.3)
--- NOTE | 2025-04-30 01:39 | HMCIMG ---
EXAM: CT Abdomen and Pelvis without IV contrast. CLINICAL HISTORY: Pain in the upper abdomen. Flank pain. TECHNIQUE: Thin collimated axial CT images of the abdomen and pelvis were obtained. A CT scan is done according to ALARA (As Low As Reasonably Achievable). CONTRAST: None. COMPARISON: CT scan of the abdomen and pelvis. 06/04/2024. FINDINGS: Unremarkable visualized lung parenchyma. There is no focal abnormality appreciated within the liver, gallbladder, pancreas, spleen, or adrenals. Increased density of the liver. 2 cm cortical cyst at the left renal upper pole. There is no obvious bowel wall thickening. Bowel loops are normal in caliber without evidence of obstruction or ileus. Moderate hiatus hernia. Scattered colonic diverticulosis with mild constipation. The appendix is unremarkable. There is no abnormality within the urinary bladder. Unremarkable reproductive organs. No lymphadenopathy. No free fluid. No pneumoperitoneum. Patchy opacity calcifications of the aorta and its major branches. Osteopenia. Thoracolumbar spondylosis. IMPRESSIONS: No acute process in the abdomen or pelvis. An interval increase in the liver density could be secondary to hemochromatosis or other systemic iron overload pathology. Further evaluation is recommended. Moderate hiatus hernia. Scattered colonic diverticulosis with mild constipation. Left renal cortical cyst. /[place]
--- NOTE | 2025-04-30 01:40 | NUR ---
PATIENT IN BATHROOM AT THIS TIME.
--- NOTE | 2025-04-30 02:02 | ERN ---
ED Note History of Present Illness Stated Complaint: BILATERAL FLANK. ABD PAIN Chief Complaint: Abdominal Pain Time Seen by MD: 23:45 Time Seen by Midlevel: 23:45 Dictation: The patient is an 89-year-old female with a history of hypertension, AFib on E liquis who presents to the emergency department with complaints of right left upper abdominal pain onset two weeks ago. Patient otherwise denies any nausea, vomiting, diarrhea or fevers. Patient was seen here earlier this month and was diagnosed with a urinary tract infection. Allergies: Coded Allergies: ciprofloxacin (Unverified Allergy, Unknown, HALLUCINATIONS, 06/10/24) Home Meds Active Scripts Cephalexin Monohydrate (Keflex) 500 Mg Cap, 500 MG PO QID for 7 Days, #28 CAP Prov:BRAIN PAL MD 04/11/25 Nitrofurantoin Macrocrystal (Nitrofurantoin) 100 Mg Capsule, 100 MG PO DAILY for 3 Days, #3 CAP Prov:SAMI BOB 06/12/24 Potassium Chloride (Potassium Chloride) 10 Meq Capsule.er, 10 MEQ PO DAILY, #15 CAP Prov:SAMI BOB 06/12/24 Sodium Chloride (NaCl) 1,000 Mg Tab, 1000 MG PO TID, #30 TAB Prov:SAMI BOB 06/12/24 Reported Medications Sertraline HCl (Sertraline HCl) 50 Mg Tablet, 50 MG PO DAILY, TAB 06/09/24 Losartan Potassium (Losartan Potassium) 100 Mg Tablet, 100 MG PO DAILY, TAB 05/22/24 Apixaban (Eliquis) 2.5 Mg Tablet, 2.5 MG PO BID, TAB 05/22/24 Amiodarone HCl (Amiodarone HCl) 200 Mg Tablet, 200 MG PO DAILY, TAB 05/22/24 Amlodipine Besylate (Amlodipine Besylate) 5 Mg Tablet, 5 MG PO DAILY, TAB 05/22/24 Pantoprazole Sodium (Protonix) 40 Mg Ectab, 40 MG PO DAILY, TAB.EC 03/30/16 Past Medical History Past Medical History: A-Fib, Arthritis, CAD, CHF, Diverticulosis, GERD, Hypertension, Renal Disese, Other Additional Past Medical Hx: SVT, GALLSTONES Surgical History: None Surgical History Other: LEFT LEG SX Social History: Negative, Lives with family History: Not Applicable RN Note Reviewed/Agreed w/PFSH: Yes Review of System Dictation Constitutional: Negative for fever,chills, and weight loss Eyes: Negative for injury, pain,redness, and discharge ENT: Negative for injury,pain or swelling Cardiovascular: Negative for chest pain, palpitations, and edema Respiratory: Negative for shortness of breath, cough, and wheezing, Abdomen/GI: Negative for nausea, vomiting, diarrhea, and constipation positive for abdominal pain Back: Negative for injury and pain : Negative for injury, bleeding and discharge MS/Extremity: Negative for injury and deformity Skin: Negative for rash, and discoloration Neuro: Negative for headache, weakness, numbness, tingling, and seizure Psych: Negative for suicide ideation, homicidal ideation, and hallucinations Initial Vital Sign VS Vital Signs Date Time Temp Pulse Resp B/P (MAP) Pulse Ox O2 Delivery O2 Flow Rate FiO2 04/29/25 23:23 97.9 85 20 126/60 97 Room Air 04/30/25 01:20 0 21 Physical Exam Dictation Vital Signs reviewed General Appearance: Alert, oriented x 3, no acute distress, well developed, nourished. Head and Face: non-traumatic. Eyes: PERRL, pink conjunctivas, eyelid no trauma, anterior chamber with arcus senilis. Ears: Pinnas intact and no signs of trauma or erythema ear canals clear and no discharge TM no erythema Nose: No discharge, no bleeding. Oropharynx: Mouth normal, tongue pink. pharynx clear,no erythema, tonsils no exudates, no abscesses noted, mucous membrane moist Neck: Supple, non-tender, no thyromegaly, no masses, no JVD, no bruits Breast:Deferred Chest:No tenderness, no crepitus, no paradoxical movement, no retractions Lungs:Clear, well-ventilated, symmetric, no rales, no wheezing, no rhonchi, no stridor, good breath sounds bilaterally Heart: Regular rate, regular rhythm, no murmur, no gallops Vascular: no peripheral edema, Abdomen: Soft, positive bowel sounds, nondistended, no guarding, Right and left upper abdominal pain, no rebound, no masses no hepatomegaly, no splenomegaly, no Fleming's sign, no hernias. Rectal: Deferred Genital: Deferred Neurological: Normal speech, motor function intact, sensory function intact Musculoskeletal: Neck nontender, full range of motion, back nontender, full range of motion, Extremities: nontender, full range of motion Skin: Color pink, dry, no turgor, no rash, no lacerations, no abrasions, no contusions. Lymphatic: Deferred Results (Laboratory/Radiology) Laboratory/Radiology Laboratory Tests Test 04/30/25 00:21 White Blood Count 7.0 K/uL (4.8-10.8) Red Blood Count 3.87 MIL/uL (4.00-5.50) L Hemoglobin 11.4 g/dL (12.0-16.0) L Hematocrit 34.8 % (36-48) L Mean Corpuscular Volume 89.9 fL (79-99) Mean Corpuscular Hemoglobin 29.5 pg (27.0-33.0) Mean Corpuscular Hemoglobin Concent 32.8 g/dL (32.0-36.0) Red Cell Distribution Width 15.9 % (11.0-15.5) H Platelet Count 452 K/uL (130-400) H Mean Platelet Volume 9.2 fL (7.5-10.5) Immature Granulocyte % (Auto) 0.3 % (0-1) Neutrophils (%) (Auto) 60.9 % (40.0-77.0) Lymphocytes (%) (Auto) 22.3 % (21.0-51.0) Monocytes (%) (Auto) 13.3 % (3.0-13.0) H Eosinophils (%) (Auto) 2.6 % (0.0-8.0) Basophils (%) (Auto) 0.6 % (0.0-5.0) Neutrophils # (Auto) 4.3 K/uL (1.8-7.7) Lymphocytes # (Auto) 1.6 K/uL (1.0-4.8) Monocytes # (Auto) 0.9 K/uL (0.1-1.0) Eosinophils # (Auto) 0.18 K/uL (0.00-0.70) Basophils # (Auto) 0.04 K/uL (0.00-0.20) Absolute Immature Granulocyte (auto 0.02 K/uL (0-1) Nucleated Red Blood Cells 0.0 % (0.0-0.19) Urine Color LIGHT-YELLOW (YELLOW) Urine Appearance CLEAR (CLEAR) Urine pH 5.5 (5.0-8.0) Urine Specific Seltzer 1.016 (1.001-1.031) Urine Protein NEGATIVE mg/dL (NEGATIVE) Urine Glucose (UA) NEGATIVE mg/dL (NEGATIVE) Urine Ketones NEGATIVE mg/dL (NEGATIVE) Urine Occult Blood SMALL (NEGATIVE) H Urine Nitrate NEGATIVE (NEGATIVE) Urine Bilirubin NEGATIVE mg/dL (NEGATIVE) Urine Urobilinogen 0.2 mg/dL (0.2-1.0) Urine Leukocyte Esterase NEGATIVE Emil/uL Urine RBC 2-5 /HPF (0-1) H Urine WBC 2-5 /HPF (0-1) H Urine Squamous Epithelial Cells RARE /HPF (0-2) Urine Bacteria RARE /HPF (None Seen) Sodium Level 137 mmol/L (136-145) Potassium Level 4.0 mmol/L (3.5-5.1) Chloride Level 104 mmol/L (101-111) Carbon Dioxide Level 27 mmol/L (21-32) Blood Urea Nitrogen 31 mg/dL (7-18) H Creatinine 1.3 mg/dL (0.5-1.0) H Glomerular Filtration Rate Calc 39 mL/min (>90) Random Glucose 113 mg/dL (70-105) H Total Calcium 9.0 mg/dL (8.5-10.1) Total Bilirubin 0.5 mg/dL (0.2-1.0) Direct Bilirubin 0.2 mg/dL (0.0-0.3) Aspartate Amino Transf (AST/SGOT) 20 U/L (10-37) Alanine Aminotransferase (ALT/SGPT) 22 U/L (12-78) Alkaline Phosphatase 89 U/L (50-136) Troponin I High Sensitivity 11 ng/L (4-50) Total Protein 7.0 g/dL (6.0-8.3) Albumin 3.3 g/dL (3.5-5.0) L Lipase 23 U/L (16-77) REASON: upper abd pain, flank pain ORDERING PHYSICIAN: BATOOL TURNER PROCEDURE: ABD PEL WO - CT ABDOMEN/PELVIS W/O CONTRAST EXAM: CT Abdomen and Pelvis without IV contrast. CLINICAL HISTORY: Pain in the upper abdomen. Flank pain. TECHNIQUE: Thin collimated axial CT images of the abdomen and pelvis were obtained. A CT scan is done according to MATT (As Low As Reasonably Achievable). CONTRAST: None. COMPARISON: CT scan of the abdomen and pelvis. 06/04/2024. FINDINGS: Unremarkable visualized lung parenchyma. There is no focal abnormality appreciated within the liver, gallbladder, pancreas, spleen, or adrenals. Increased density of the liver. 2 cm cortical cyst at the left renal upper pole. There is no obvious bowel wall thickening. Bowel loops are normal in caliber without evidence of obstruction or ileus. Moderate hiatus hernia. Scattered colonic diverticulosis with mild constipation. The appendix is unremarkable. There is no abnormality within the urinary bladder. Unremarkable reproductive organs. No lymphadenopathy. No free fluid. No pneumoperitoneum. Patchy opacity calcifications of the aorta and its major branches. Osteopenia. Thoracolumbar spondylosis. IMPRESSIONS: No acute process in the abdomen or pelvis. An interval increase in the liver density could be secondary to hemochromatosis or other systemic iron overload pathology. Further evaluation is recommended. Moderate hiatus hernia. Scattered colonic diverticulosis with mild constipation. Left renal cortical cyst. /[facility] Labs Reviewed?: Yes EKG: (+) rhythm (Sinus rhythm) EKG Comment: Date:04/30/2025 Time:5 Ventricular rate:90 FL interval:269 QRS duration:118 QT/QTc:376/460 EKG interpretation: sinus rhythm Reviewed by ED Attending no stemi ED Course ED Course Orders Procedure Category Date Status Time Vital Signs Per CPOE 04/29/25 Transmitted Routine 23:25 Saline Lock Iv CPOE 04/29/25 Transmitted 23:25 Cbc With Differential LAB 04/29/25 Complete 23:25 Lipase LAB 04/29/25 Complete 23:25 Urinalysis Profile LAB 04/29/25 Complete 23:25 Basic Metabolic Panel LAB 04/29/25 Complete 23:25 Troponin I High LAB 04/29/25 Complete Sensitivity 23:51 12 Lead Ekg Tracing- EKG 04/29/25 Logged Technical 23:51 Morphine 2mg Syg PHA 04/30/25 Complete (Morphine 2mg Syg) 00:00 Ondansetron 4mg Inj PHA 04/30/25 Complete (Zofran 4mg Inj) 00:00 Pantoprazole 40mg Inj PHA 8/22/25 Complete (Protonix 40mg Inj 00:00 Ct Abdomen/Pelvis W/O CT 04/29/25 Resulted Contrast 23:51 Hepatic Function Panel LAB 04/30/25 Complete 00:21 Current Medications Medications (Trade) Dose Ordered Sig/Donovan Route PRN Reason Start Time Stop Time Status Last Admin Dose Admin Morphine Sulfate (morPHINE 2MG SYG) 2 mg ONCE ONCE IVP 04/30/25 00:00 04/30/25 00:01 DC 04/30/25 01:51 Ondansetron HCl (zoFRAN 4MG INJ) 4 mg ONCE ONCE IVP 04/30/25 00:00 04/30/25 00:01 DC 04/30/25 01:51 Pantoprazole Sodium (PROTonix 40MG INJ) 40 mg ONCE ONCE IVP 04/30/25 00:00 04/30/25 00:01 DC 04/30/25 01:51 Vital Signs Date Time Temp Pulse Resp B/P (MAP) Pulse Ox O2 Delivery O2 Flow Rate FiO2 04/30/25 02:10 85 20 116/57 97 Room Air* 0 04/30/25 01:20 88 20 130/66 98 Room Air* 0 04/29/25 23:23 97.9 85 20 126/60 97 Room Air Medical Decision Making MDM The patient is an 89-year-old female with a history of hypertension, AFib on Eliquis who presents to the emergency department with complaints of right left upper abdominal pain onset two weeks ago. Patient otherwise denies any nausea, vomiting, diarrhea or fevers. Patient was seen here earlier this month and was diagnosed with a urinary tract infection. CBC showed no leukocytosis, mild normocytic anemia, chemistry showed no electrolyte imbalance, creatinine of 1.3, GFR of 39, negative troponin, negative lipase, urinalysis was unremarkable. CT abdomen showed a moderate hiatus hernia, mild constipation. Patient was reassessed. Reports feeling better. Patient with stable vital signs, in no acute distress. Labs and imaging discussed with the patient and patient's daughter who agreed to be discharged and follow up as outpatient Differential diagnosis: Gastritis, gastroenteritis, bowel obstruction, cholecystitis, ACS, UTI Need for hospitalization: Patient does not meet criteria for hospitalization. There are no social concerns with this patient. DX & DISP Disposition: Discharge Departure Impression: Primary Impression: Hiatal hernia Additional Impression: Abdominal pain Condition: Stable Scripts Acetaminophen with Codeine (Acetaminophen-Cod #3 Tablet) 300 Mg-30 Mg Tablet 1 TAB PO [id number] PRN for pain for 7 Days, #7 TAB 0 Refills Prov: BATOOL TURNER TYLER 04/30/25 Additional Instructions: Your labs were unremarkable. Your CT showed a hiatal hernia which we discussed. Take your medications as prescribed. If anything worsens please return to ER. FOLLOW-UP WITH PRIMARY CARE PROVIDER IN 1 TO 2 DAYS. TAKE MEDICATIONS DIRECTED HERE IN THE EMERGENCY ROOM. OKAY TO CONTINUE HOME MEDICATIONS UNLESS OTHERWISE DISCUSSED DURING YOUR VISIT IN THE EMERGENCY ROOM TODAY. RETURN TO YOUR NEAREST EMERGENCY ROOM IF SYMPTOMS WORSEN OR IF THERE IS NO IMPROVEMENT. CALL 911 IF YOU NEED IMMEDIATE ASSISTANCE. TAKE TYLENOL [id number] NEEDED AND IF NO CONTRAINDICATIONS ARE PRESENT. INCREASE ORAL HYDRATION. A WOUND CULTURE OR URINE CULTURE WAS ORDERED HERE IN THE EMERGENCY ROOM DEPARTMENT PLEASE FOLLOW-UP WITH PRIMARY CARE PROVIDER AND ADVISE THEM TO GET REPEAT PORTS FROM OUR FACILITY. IF YOU HAD ANY STEVO WRAP/SPLINTS THAT WERE APPLIED HERE, PLEASE DO NOT REMOVE THEM UNTIL YOU SEE YOUR PRIMARY CARE OR SPECIALTY. Referrals: SUNNY KINNEY MD (PCP) EDITH EVERETT MD Time of Disposition: 02:19 I have reviewed the case, and I agree with, Diagnosis and Plan BATOOL TURNER TYLER Apr 30, 2025 02:02
[2025-04-30] MEDS ORDERED: ACET-2079 PO (02:21)
[2025-04-30 02:27] VITALS: BP 116/57; PULSE 86; RESP 20; TEMP 98; O2SAT 97
--- NOTE | 2025-04-30 06:32 | EKG ---
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
== END 2025-04-30 02:40 | disposition home or self-care (01) ==
LOC: EDH 23:22
DX: K44.9 Diaphragmatic hernia without obstruction or gangrene (principal); I11.0 Hypertensive heart disease with heart failure; I50.9 Heart failure, unspecified; I25.10 Atherosclerotic heart disease of native coronary artery without angina pectoris; M19.90 Unspecified osteoarthritis, unspecified site; Z79.01 Long term (current) use of anticoagulants; Z79.899 Other long term (current) drug therapy; Z88.1 Allergy status to other antibiotic agents
CPT/HCPCS: 99285; 74176; 80076; 84484; 80048; 83690; 85025; 81001; 36415; 93005; 96374; 96375; J2270; J2405; J2470

== ENCOUNTER → 2025-07-08 | Outpatient (CLI) | payer OTHER, MEDICARE ==
[~2025-07-08] MED LIST changes: +ACET-2079 PO
--- NOTE | 2025-07-08 13:17 | HMCIMG ---
DOUBLE CONTRAST UPPER GI SERIES: Finding: The study was performed using provocative maneuvers After swallowing effervescent crystal and thick barium, there is no definite intrinsic or extrinsic lesion seen in the esophagus has tertiary contraction of the esophagus.. There is a moderate-sized hiatal hernia with leakage of contrast seen on the medial aspect. I would recommend CT for further evaluation with Gastrografin. The stomach is normal in size, shape, and configuration. The rugal folds appear to be normal. The duodenal bulb, duodenal sweep, and upper jejunum appear to be normal. Fluoroscopy time: 0.8 minutes. IMPRESSION: There is a moderate-sized hiatal hernia with suggestion of leakage of contrast. I would recommend a CT of the chest and abdomen with esophageal contrast to evaluate the leakage. There is a grade 2 esophageal reflux Tertiary contraction of the esophagus
== END | disposition home or self-care (01) ==
LOC: RAH 08:47
PROVIDERS: ATTEND Internal Medicine Gastroenterology
DX: K21.9 Gastro-esophageal reflux disease without esophagitis (principal); K44.9 Diaphragmatic hernia without obstruction or gangrene; R10.13 Epigastric pain
CPT/HCPCS: 74240

== ENCOUNTER → 2025-08-10 | Outpatient (CLI) | payer OTHER, MEDICARE ==
[2025-08-10 10:40] LABS: CREATININE 0.9 mg/dL (0.5-1.0); GLOMERULAR FILTR. RATE CALC 61.0 mL/min (>90); UREA NITROGEN, BLOOD 22.0 mg/dL (7-18)
== END | disposition home or self-care (01) ==
LOC: LAB 09:24
PROVIDERS: ATTEND Internal Medicine Gastroenterology
DX: R93.5 Abnormal findings on diagnostic imaging of other abdominal regions, including retroperitoneum (principal)
CPT/HCPCS: 36415; 82565; 84520

== ENCOUNTER → 2025-08-12 | Outpatient (CLI) | payer OTHER, MEDICARE ==
[~2025-08-12] MED LIST changes: +IOHEXOL-350 50ML VIAL IV ONE
--- NOTE | 2025-08-13 10:10 | HMCIMG ---
EXAM: CT Chest With and Without Intravenous Contrast. CLINICAL HISTORY: Abnormal findings on diagnostic imaging of other abdominal regions. TECHNIQUE: Axial computed tomography images of the chest with and without intravenous contrast. 49 mL of intravenous contrast has been administered. Dose reduction technique was used including one or more of the following: automated exposure control, adjustment of mA and kV according to patient size, and/or iterative reconstruction. Total exam DLP 438.60. Total CTDI: 12.80. CONTRAST: With; 49 mL intravenous contrast. COMPARISON: Prior chest radiograph dated 04/10/[address] scan of the abdomen and pelvis dated 04/29/2025. FINDINGS: LUNGS: No pulmonary mass. No focal airspace consolidation. There are areas of parenchymal breakdown, fibroatelectatic scarring in the apical regions of the both upper lobes. There is a 4 mm sized subpleural nodule in the superior segment of the right lower lobe, series 3, image 22/48. Additional areas of subsegmental atelectasis are present in the bilateral lung bases. PLEURAL SPACES: No pleural effusion. No pneumothorax. HEART AND MEDIASTINUM: No cardiomegaly. No significant pericardial effusion. There are atheromatous changes in the thoracic aortic arch and the coronary arteries. There are coronary artery calcifications present. There is enlargement of the left atrium. Mitral and aortic valve annulus calcifications are present. LYMPH NODES: No supraclavicular, axillary, mediastinal or hilar adenopathy. CHEST WALL AND UPPER ABDOMEN: A small sized hiatal hernia is present with dilatation of the distal thoracic esophagus containing air fluid levels. Again seen is a left renal upper polar hypodense (HU value 10) cyst measuring 2 cm, stable since the prior CT scan of the abdomen and pelvis dated 04/29/2025. There are fecal matter loaded colonic loops visualized in the upper abdomen. The remaining visualized upper abdominal solid organs are unremarkable. BONES: The bones show diffuse osteopenia. There is dextroscoliosis of the thoracic spine. Chronic appearing compression deformities are present involving multiple thoracolumbar vertebrae, most severe at T8, L2 levels with vertebra plana and an exaggerated thoracolumbar spine kyphotic deformity. IMPRESSION: 1. No acute intrathoracic abnormality related to the provided clinical indication. 2. Diffuse osteopenia with dextroscoliosis and chronic-appearing compression deformities, most severe at T8 and L2 with vertebra plana and exaggerated thoracolumbar kyphosis. 3. Small hiatal hernia with distal esophageal dilation and air-fluid levels, stable in morphology since the prior CT scan of the abdomen and pelvis dated april 29, 2025 . 4. Stable 4 mm subpleural right lower lobe pulmonary nodule (series 3, image 22/48). Continue annual surveillance CT scan. 5. Several additional chronic and incidental findings are noted, as detailed in the body of the report. /Chichi
== END | disposition home or self-care (01) ==
LOC: RAH 08:26
PROVIDERS: ATTEND Internal Medicine Gastroenterology
DX: J98.11 Atelectasis (principal); R91.1 Solitary pulmonary nodule; M25.78 Osteophyte, vertebrae; M85.88 Other specified disorders of bone density and structure, other site; M41.85 Other forms of scoliosis, thoracolumbar region; K44.9 Diaphragmatic hernia without obstruction or gangrene; M48.55XA Collapsed vertebra, not elsewhere classified, thoracolumbar region, initial encounter for fracture; M43.8X5 Other specified deforming dorsopathies, thoracolumbar region; I25.10 Atherosclerotic heart disease of native coronary artery without angina pectoris; I08.0 Rheumatic disorders of both mitral and aortic valves; R93.5 Abnormal findings on diagnostic imaging of other abdominal regions, including retroperitoneum
CPT/HCPCS: 71270; Q9967